=== PATIENT | male | born 1960 | race Caucasian/White ===

== ENCOUNTER 2018-05-07 21:05 | Emergency (ER) | payer OTHER ==
[~2018-05-07] VITALS: Ht 175.3 cm; Wt 81.6 kg
[2018-05-07 21:08] VITALS: BP 132/75; Ht 175.3 cm; Wt 81.6 kg
== END 2018-05-08 00:17 | disposition home or self-care (01) ==
LOC: ED 21:05
DX: S93.401A Sprain of unspecified ligament of right ankle, initial encounter (principal); S93.402A Sprain of unspecified ligament of left ankle, initial encounter; Z88.2 Allergy status to sulfonamides; X50.1XXA Overexertion from prolonged static or awkward postures, initial encounter; Y93.89 Activity, other specified; Y92.89 Other specified places as the place of occurrence of the external cause; Y99.8 Other external cause status